=== PATIENT | female | born 1965 | race American Indian/Alaskan Native ===

== ENCOUNTER 2017-01-14 01:40 | Inpatient (IN) | payer MEDICARE ==
[2017-01-14 02:27] LABS: Basophils % (Auto) 0.9 % (0.0-1.8); Eosinophils % (Auto) 2.3 % (0.0-4.3); Hemoglobin 12.4 gm/dl (10.1-14.3); Mean Corpuscular HGB Conc 33 % (30-34); Mean Corpuscular Hemoglobin 28 pg (28-32); Mean Corpuscular Volume 85 fl (79-97); Platelet Count 189 K/mm3 (140-440); Red Blood Count 4.48 M/mm3 (3.65-5.03); White Blood Count 4.7 K/mm3 (4.5-11.0)
[2017-01-14 02:45] LABS: INR 1.13 (0.87-1.13)
[2017-01-14 02:46] LABS: Partial Thromboplastin Time 29.3 Sec. (24.2-36.6)
[2017-01-14 02:50] LABS: Alanine Aminotransferase 19 units/L (7-56); Albumin 4.3 g/dL (3.9-5); Albumin/Globulin Ratio 1.4 %; Alkaline Phosphatase 97 units/L (35-129); Anion Gap 18 mmol/L; BUN/Creatinine Ratio 18.57; Blood Urea Nitrogen 13 mg/dL (7-17); Carbon Dioxide 23 mmol/L (22-30); Chloride 107.6 mmol/L (98-107); Glucose 111 mg/dL (65-100); Potassium 3.8 mmol/L (3.6-5.0); Sodium 145 mmol/L (137-145); Total Protein 7.4 g/dL (6.3-8.2)
[2017-01-14] MEDS ORDERED: ZOFRAN ONE (05:00)
[2017-01-14] MEDS ORDERED: MORPHINE ONE (05:00)
[2017-01-14] MEDS ORDERED: MORPHINE IV ONE (05:01)
[2017-01-14] MEDS ORDERED: ZOFRAN IV ONE (05:01)
[2017-01-14] MEDS ORDERED: NITROSTAT SL ONE (07:37)
[2017-01-14] MEDS ORDERED: TYLENOL PO ONE (07:37)
--- NOTE | 2017-01-14 09:06 | XRay Report ---
Single view chest: Compared to 08/20/15. History: Chest pain. Findings: Normal cardiomediastinal silhouette. Trachea is midline. No consolidation, pneumothorax or pleural effusion. Impression: No acute cardiopulmonary findings.
[2017-01-14] MEDS ORDERED: BABY ASPIRIN PO ONE (09:43)
--- NOTE | 2017-01-14 09:43 | Emergency Department Report ---
HPI - General Chief Complaint: Chest Pain Time Seen by Provider: 01/14/17 06:47 - HPI HPI: The patient is a 51-year-old female who presents for evaluation of chest pain. The patient has a history of coronary artery disease and stent placement 3 years ago. The patient complains of midsternal chest pain onset 3 hours prior to arrival, constant since onset, pressure-like in quality, 8/10 in severity, and radiating to her back. The patient denies fever, cough, syncope, hemoptysis , unilateral leg swelling, recent immobilization, history of DVT or PE, recent cancer, recent surgery. She says that she has not received a stress test within the past year. ED Past Medical Hx - Past Medical History Previous Medical History?: Yes Hx Hypertension: Yes Hx Heart Attack/AMI: Yes Hx Congestive Heart Failure: No Hx Diabetes: No Hx Deep Vein Thrombosis: No Hx of Cancer: Yes (Colon) Hx Headaches / Migraines: Yes Hx Asthma: Yes Hx COPD: No Hx HIV: No Additional medical history: lupus - Surgical History Past Surgical History?: Yes Hx Coronary Stent: Yes Hx Pacemaker: No Hx Internal Defibrillator: No Additional Surgical History: herniated discs - Social History Smoking Status: Never Smoker Substance Use Type: None - Medications Home Medications: Home Medications Medication Instructions Recorded Confirmed Last Taken Type ALBUTEROL Inhaler [ProAir HFA 2 puff INHALATION Q4H PRN 12/12/13 01/14/17 History Inhaler] FLUoxetine [PROzac] 40 mg PO DAILY 12/12/13 01/14/17 08/19/15 History Hydroxychloroquine [Plaquenil] 200 mg PO BID 12/12/13 01/14/17 08/19/15 History traZODone [Desyrel] 150 mg PO QHS 12/12/13 01/14/17 08/19/15 History Aspirin [Aspirin TAB] 325 mg PO QDAY #30 tablet 12/15/13 01/14/17 08/19/15 Rx Clopidogrel [Plavix] 75 mg PO QDAY #30 tablet 12/15/13 01/14/17 08/19/15 Rx Nitroglycerin [Nitrostat] 0.4 mg SL Q5M PRN #60 tab 12/15/13 01/14/17 08/19/15 Rx Atorvastatin [Lipitor] 40 mg PO QHS 08/20/15 01/14/17 08/19/15 History Cholecalciferol (Vitamin D3) 2,000 unit PO DAILY 08/20/15 01/14/17 08/19/15 History [Vitamin D3] HYDROcodone/APAP 10-325 [[place] 1 each PO Q4HR PRN 08/20/15 01/14/17 08/19/15 History 10-325 mg TAB] Hydrocortisone Acetate 25 mg RC BID 08/20/15 01/14/17 08/19/15 History [Hemmorex-Hc] Meloxicam [Mobic] 7.5 mg PO QDAY 08/20/15 01/14/17 08/19/15 History Pantoprazole [Protonix TAB] 40 mg PO BID #30 08/20/15 01/14/17 08/19/15 Rx Propranolol HCl 20 mg PO BID 08/20/15 01/14/17 08/19/15 History Sucralfate 1 gm PO QID 08/20/15 01/14/17 08/19/15 History ED Review of Systems ROS: Stated complaint: CHEST PAIN Other details as noted in HPI Constitutional: denies: fever ENT: denies: throat or neck pain Respiratory: denies: cough, shortness of breath Cardiovascular: reports chest pain Endocrine: denies unexplained weight loss or gain Gastrointestinal: denies: abdominal pain, nausea Genitourinary: denies: dysuria Musculoskeletal: denies: leg swelling Skin: denies: rash Neurological: denies: headache Hematological/Lymphatic: denies: easy bleeding or easy bruising Psych: denies sadness or hopelessness Physical Exam - Physical Exam Vital Signs: Vital Signs 01/14/17 01/14/17 01/14/17 01:49 02:36 03:00 Temperature 98.1 F Pulse Rate 69 62 60 Respiratory 18 19 17 Rate Blood Pressure 142/79 135/62 O2 Sat by Pulse 98 100 98 Oximetry 01/14/17 01/14/17 01/14/17 03:30 04:01 04:30 Temperature Pulse Rate 60 58 L 71 Respiratory 15 16 17 Rate Blood Pressure 139/66 132/63 118/71 O2 Sat by Pulse 100 98 99 Oximetry 01/14/17 01/14/17 01/14/17 05:01 05:30 06:01 Temperature Pulse Rate 78 71 62 Respiratory 16 12 14 Rate Blood Pressure 127/57 143/119 142/71 O2 Sat by Pulse 98 96 99 Oximetry 01/14/17 01/14/17 01/14/17 06:30 07:00 07:20 Temperature Pulse Rate 61 62 64 Respiratory 12 17 Rate Blood Pressure 142/71 129/63 O2 Sat by Pulse 99 97 Oximetry 01/14/17 01/14/17 01/14/17 07:25 07:30 08:00 Temperature 98.0 F Pulse Rate 67 70 58 L Respiratory 16 13 Rate Blood Pressure 122/71 122/71 O2 Sat by Pulse 98 98 Oximetry 01/14/17 01/14/17 01/14/17 08:31 09:01 09:14 Temperature Pulse Rate 69 69 67 Respiratory 15 14 Rate Blood Pressure 153/75 147/74 147/84 O2 Sat by Pulse 98 97 Oximetry Physical Exam: Constitutional: denies: fever ENT: denies: throat or neck pain Respiratory: denies: cough, shortness of breath Cardiovascular: denies: chest pain Endocrine: denies unexplained weight loss or gain Gastrointestinal: denies: abdominal pain, nausea Genitourinary: denies: dysuria Musculoskeletal: denies: leg swelling Skin: denies: rash Neurological: denies: headache Hematological/Lymphatic: denies: easy bleeding or easy bruising Psych: denies sadness or hopelessness ED Course Vital Signs 01/14/17 01/14/17 01/14/17 01:49 02:36 03:00 Temperature 98.1 F Pulse Rate 69 62 60 Respiratory 18 19 17 Rate Blood Pressure 142/79 135/62 O2 Sat by Pulse 98 100 98 Oximetry 01/14/17 01/14/17 01/14/17 03:30 04:01 04:30 Temperature Pulse Rate 60 58 L 71 Respiratory 15 16 17 Rate Blood Pressure 139/66 132/63 118/71 O2 Sat by Pulse 100 98 99 Oximetry 01/14/17 01/14/17 01/14/17 05:01 05:30 06:01 Temperature Pulse Rate 78 71 62 Respiratory 16 12 14 Rate Blood Pressure 127/57 143/119 142/71 O2 Sat by Pulse 98 96 99 Oximetry 01/14/17 01/14/17 01/14/17 06:30 07:00 07:20 Temperature Pulse Rate 61 62 64 Respiratory 12 17 Rate Blood Pressure 142/71 129/63 O2 Sat by Pulse 99 97 Oximetry 01/14/17 01/14/17 01/14/17 07:25 07:30 08:00 Temperature 98.0 F Pulse Rate 67 70 58 L Respiratory 16 13 Rate Blood Pressure 122/71 122/71 O2 Sat by Pulse 98 98 Oximetry 01/14/17 01/14/17 01/14/17 08:31 09:01 09:14 Temperature Pulse Rate 69 69 67 Respiratory 15 14 Rate Blood Pressure 153/75 147/74 147/84 O2 Sat by Pulse 98 97 Oximetry ED Medical Decision Making - Lab Data Result diagrams: 01/14/17 02:15 01/14/17 02:15 - Medical Decision Making The patient was seen and examined by myself. The patient is placed on a hand polisher and continuous pulse ox. On initial evaluation, the patient was found to be in no distress. EKG was negative for findings suggestive of acute cardiac infarct. The patient is given an aspirin, a tab of Tylenol, and a nitroglycerin tablet. The patient was given morphine by the previous shift physician. Labs and imaging are obtained. Chest x-ray is negative for pneumothorax, focal consolidation, pulmonary vascular congestion, pleural effusion, or other obvious acute cardiopulmonary disease process. Lab results were non-revealing including negative troponin, WBC, hemoglobin, hematocrit, electrolytes, renal function. The patient was reevaluated and reported that their symptoms were improved but persisted. As the patient has chest pain and risk factors for development of acute coronary event, and has not received a stress test within the past year, the patient will be admitted for close cardiopulmonary monitoring, serial troponins, and evaluation by cardiology. The on-call [facility] physician Dr. Vazquez was contacted. She approved the patient's admission to our facility. The physician on-call was contacted. They presented to the emergency department and evaluated the patient. They agreed to admit the patient. The ED admit order was placed. The patient was admitted in guarded condition. Critical care attestation.: If time is entered above; I have spent that time in minutes in the direct care of this critically ill patient, excluding procedure time. ED Disposition Clinical Impression: Acute chest pain, Obesity (BMI 30.0-34.9) Disposition: OP ADMIT IP TO THIS HOSP Is pt being admited?: Yes Does the pt Need Aspirin: Yes Condition: Stable Time of Disposition: 07:41
--- NOTE | 2017-01-14 13:52 | History and Physical Report ---
History of Present Illness Date of examination: 01/14/17 Date of admission: 01/14/17 10:53 Chief complaint: chest pain History of present illness: The patient is a 51-year-old female with a history of coronary artery disease and stent placement 3 years ago who presents to the ER for the evaluation of chest pain. The patient complains of midsternal chest pain onset 3 hours prior to arrival to ER, constant since onset, pressure-like in quality, 8/10 in severity, and radiating to her back. The patient denies fever, cough, syncope, hemoptysis, unilateral leg swelling, recent immobilization. She had similar presentation last year and evaluated by a stress stress which was normal and 2- D echocardiogram showed preserved EF. Patient now being followed by [facility] as outpatient. She states that she recently started to going to gym for weight reduction, but did not experience any chest pain while she was exercising. Her chest pain actually developed since last Monday and she preferred not to go to gym. But the chest pain continued to recur and was lasting even longer, so she decided to come to ER for further evaluation. ER she has so far negative troponins, EKG without any ST changes, chest x-ray did not show any acute infiltrates. She'll be admitted for further evaluation and management. Past medical History: h/o CAD, HTN, discoid lupus, bronchial asthma, colon cancer status post surgery and chemotherapy. IBS, migraine, disc disease Past surgical History: s/p PCI to LAD with FRAN on 2013, hysterectomy, Other ( surgery for colon cancer, placement and removal of port's. Social History: Lives with family, denies any smoking, drinking and elicit drug abuse. Family History: Significant for CAD (father), hypertension Review of System: Constitutional: no fever, no chills, no weight loss Ears, eyes, nose, mouth and throat: no nasal congestion, no nasal discharge, no sinus pressure, no vision change, no red eye. Neck: No neck pain or rigidity. Cardiovascular: + chest pain, no orthopnea, no palpitations, no leg swelling Respiratory: No shortness of breath, no cough, no congestion, no wheezing Gastrointestinal: no abdominal pain, no nausea, no vomiting Genitourinary : no dysuria, no hematuria Musculoskeletal: no joint swelling or muscle ache Integumentary: no rash, no pruritis Neurological: no parathesias, no numbness, no tingling Endocrine: no cold or heat intolerance, no polyuria or polydipsia Hematologic/Lymphatic: no easy bruising, no easy bleeding, no gland swelling Allergic/Immunologic: no urticaria, no angioedema. Medications and Allergies Allergies Allergy/AdvReac Type Severity Reaction Status Date / Time Penicillins AdvReac Unknown Verified 12/12/13 05:40 Home Medications Medication Instructions Recorded Confirmed Last Taken Type ALBUTEROL Inhaler [ProAir HFA 2 puff INHALATION Q4H PRN 12/12/13 01/14/17 History Inhaler] FLUoxetine [PROzac] 40 mg PO DAILY 12/12/13 01/14/17 08/19/15 History Hydroxychloroquine [Plaquenil] 200 mg PO BID 12/12/13 01/14/17 08/19/15 History traZODone [Desyrel] 150 mg PO QHS 12/12/13 01/14/17 08/19/15 History Aspirin [Aspirin TAB] 325 mg PO QDAY #30 tablet 12/15/13 01/14/17 08/19/15 Rx Clopidogrel [Plavix] 75 mg PO QDAY #30 tablet 12/15/13 01/14/17 08/19/15 Rx Nitroglycerin [Nitrostat] 0.4 mg SL Q5M PRN #60 tab 12/15/13 01/14/17 08/19/15 Rx Atorvastatin [Lipitor] 40 mg PO QHS 08/20/15 01/14/17 08/19/15 History Cholecalciferol (Vitamin D3) 2,000 unit PO DAILY 08/20/15 01/14/17 08/19/15 History [Vitamin D3] HYDROcodone/APAP 10-325 [[place] 1 each PO Q4HR PRN 08/20/15 01/14/17 08/19/15 History 10-325 mg TAB] Hydrocortisone Acetate 25 mg RC BID 08/20/15 01/14/17 08/19/15 History [Hemmorex-Hc] Meloxicam [Mobic] 7.5 mg PO QDAY 08/20/15 01/14/17 08/19/15 History Pantoprazole [Protonix TAB] 40 mg PO BID #30 08/20/15 01/14/17 08/19/15 Rx Propranolol HCl 20 mg PO BID 08/20/15 01/14/17 08/19/15 History Sucralfate 1 gm PO QID 08/20/15 01/14/17 08/19/15 History Exam - Physical Exam Narrative exam: GENERAL: This is well-developed well-nourished lying on bed appeared to be in no discomfort. HEENT: Normocephalic. Atraumatic. Extraocular motions are intact. No conjunctival congestion or icterus. Patient has moist mucous membranes. External auditory canal and nares patent bilaterally. NECK: Supple. Trachea midline. No JVD, thyromagaly or lymphadenopathy. CHEST/LUNGS: Clear to auscultated bilaterally. There is no respiratory distress noted, breathing nonlabored. No wheezes crackles or rhonchi. HEART/CARDIOVASCULAR: Regular in rate and rhythm. PMI at the apex. There is no gallop rub or murmur. ABDOMEN: Abdomen is soft, nontender. Patient has normal bowel sounds. There is no abdominal distention. No organomagaly or rigidity. SKIN: There is no rash, no erythrema. There is no diaphoresis. Warm and dry. NEUROLOGY: The patient is awake, alert, and oriented. The patient is cooperative. The patient has normal speech. No focal motor deficit. MUSCULOSKELETAL: No joint effusion or tenderness. Muscle strength equal bilaterally. No muscle wasting. EXTRIMITY: No edema, cyanosis or clubbing. PSYCH: No depression or anxiety noted. Cooperative. - Constitutional Vitals: Temp Pulse Resp BP Pulse Ox 98.0 F 61 15 143/53 93 01/14/17 07:25 01/14/17 12:31 01/14/17 12:31 01/14/17 12:31 01/14/17 12:31 Results - Labs CBC & Chem 7: 01/14/17 02:15 01/14/17 02:15 - Imaging and Cardiology Chest x-ray: report reviewed (no cardiopulmonary finding) Assessment and Plan Acute chest pain - - will admit to telemetry bed - monitor with serial CE and EKG - will place on Aspirin, statin - as needed SL NTG and iv morphin for pain - Monitor BP, continue betablocker - order 2D echo and stress test in the am - Patient had a negative stress test on 2015 and 2d echocardiogram that time showed preserved ejection fraction - cardiac diet now, NPO after midnight - Consult cardiology - provide DVT Px with lovenox CAD, - s/p PCI to LAD with FRAN on 2013 - Resume home meds HTN, - Continue home meds, monitor BP - Adjust BP meds as needed discoid lupus, - Continue Plaquenil and hydrocortisone cream bronchial asthma, - Nebulizer breathing treatment as needed colon cancer status post surgery and chemotherapy. Other chronic issues --IBS, migraine, disc disease : Continue supportive care, not on any acute exacerbation DVT prophylaxis - On Lovenox
[2017-01-14] MEDS ORDERED: NITROSTAT SL PRN (15:19)
[2017-01-14] MEDS ORDERED: PROAIR IH PRN (15:19)
[2017-01-14] MEDS ORDERED: PROVENTIL IH PRN (15:25)
[2017-01-14] MEDS: PLAVIX PO SCH (16:01)
[2017-01-14] MEDS: NORCO 10/325 PO PRN (16:01)
[2017-01-14] MEDS: PROzac PO SCH (16:02)
[2017-01-14] MEDS: CARAFATE PO SCH ×2 (18:10→22:37)
[2017-01-14] MEDS ORDERED: DESYREL PO SCH (22:00)
[2017-01-14] MEDS ORDERED: PROPRANOLOL HCL 20 MG PO SCH (22:00)
[2017-01-14] MEDS: PROTONIX PO SCH (22:38)
[2017-01-14] MEDS: ANUCORT-HC PR SCH (22:39)
[2017-01-14] MEDS: PLAQUENIL PO SCH (22:39)
[2017-01-14] MEDS: INDERAL PO SCH (22:42)
[2017-01-15] MEDS ORDERED: LEXISCAN IV ONE (08:08)
[2017-01-15] MEDS ORDERED: ASPIRIN PO SCH (10:00)
[2017-01-15] MEDS ORDERED: NON-FORMULARY (Cholecalciferol (Vitamin D3) [Vitamin D3] 2,000 UNIT) PO SCH (10:00)
[2017-01-15] MEDS ORDERED: VITAMIN D3 PO SCH (10:00)
--- NOTE | 2017-01-15 11:12 | Consultation ---
History of Present Illness Consult date: 01/15/17 Consult reason: chest pain History of present illness: This is a very pleasant 51aa female w cp yesterday - mostly atypical, non- exertional, sometimes worse w eating. Seen in stress lab and currently cp-free Medications and Allergies Allergies Allergy/AdvReac Type Severity Reaction Status Date / Time Penicillins AdvReac Unknown Verified 12/12/13 05:40 Home Medications Medication Instructions Recorded Confirmed Last Taken Type ALBUTEROL Inhaler [ProAir HFA 2 puff INHALATION Q4H PRN 12/12/13 01/14/17 History Inhaler] FLUoxetine [PROzac] 40 mg PO DAILY 12/12/13 01/14/17 08/19/15 History Hydroxychloroquine [Plaquenil] 200 mg PO BID 12/12/13 01/14/17 08/19/15 History traZODone [Desyrel] 150 mg PO QHS 12/12/13 01/14/17 08/19/15 History Aspirin [Aspirin TAB] 325 mg PO QDAY #30 tablet 12/15/13 01/14/17 08/19/15 Rx Clopidogrel [Plavix] 75 mg PO QDAY #30 tablet 12/15/13 01/14/17 08/19/15 Rx Nitroglycerin [Nitrostat] 0.4 mg SL Q5M PRN #60 tab 12/15/13 01/14/17 08/19/15 Rx Atorvastatin [Lipitor] 40 mg PO QHS 08/20/15 01/14/17 08/19/15 History Cholecalciferol (Vitamin D3) 2,000 unit PO DAILY 08/20/15 01/14/17 08/19/15 History [Vitamin D3] HYDROcodone/APAP 10-325 [[place] 1 each PO Q4HR PRN 08/20/15 01/14/17 08/19/15 History 10-325 mg TAB] Hydrocortisone Acetate 25 mg RC BID 08/20/15 01/14/17 08/19/15 History [Hemmorex-Hc] Meloxicam [Mobic] 7.5 mg PO QDAY 08/20/15 01/14/17 08/19/15 History Pantoprazole [Protonix TAB] 40 mg PO BID #30 08/20/15 01/14/17 08/19/15 Rx Propranolol HCl 20 mg PO BID 08/20/15 01/14/17 08/19/15 History Sucralfate 1 gm PO QID 08/20/15 01/14/17 08/19/15 History Active Meds: Active Medications Acetaminophen/Hydrocodone Bitart ([place] 10/325) 1 each PO Q4H PRN PRN Reason: Pain, MODERATE Last Admin: 01/14/17 16:01 Dose: 1 each Albuterol (Proventil) 2.5 mg IH Q4HRT PRN PRN Reason: Shortness Of Breath Aspirin (Aspirin) 325 mg PO QDAY [facility] Atorvastatin Calcium (Lipitor) 40 mg PO QHS [facility] Last Admin: 01/14/17 22:37 Dose: 40 mg Cholecalciferol (Vitamin D3) 2,000 unit PO QDAY [facility] Clopidogrel Bisulfate (Plavix) 75 mg PO QDAY [facility] Last Admin: 01/14/17 16:01 Dose: 75 mg Fluoxetine HCl (Prozac) 40 mg PO DAILY [facility] Last Admin: 01/14/17 16:02 Dose: 40 mg Hydrocortisone Acetate (Anucort-Hc) 25 mg OR BID [facility] Last Admin: 01/14/17 22:39 Dose: 25 mg Hydroxychloroquine Sulfate (Plaquenil) 200 mg PO BID [facility] Last Admin: 01/14/17 22:39 Dose: 200 mg Nitroglycerin (Nitrostat) 0.4 mg SL Q5M PRN PRN Reason: Chest Pain Pantoprazole Sodium (Protonix) 40 mg PO BID [facility] Last Admin: 01/14/17 22:38 Dose: 40 mg Propranolol HCl (Inderal) 20 mg PO BID [facility] Last Admin: 01/14/17 22:42 Dose: 20 mg Sucralfate (Carafate) 1 gm PO QID [facility] Last Admin: 01/14/17 22:37 Dose: 1 gm Trazodone HCl (Desyrel) 150 mg PO QHS [facility] Last Admin: 01/14/17 22:37 Dose: 150 mg Physical Examination Vital Signs Temp Pulse Resp BP Pulse Ox 98.1 F 69 18 142/79 98 01/14/17 01:49 01/14/17 01:49 01/14/17 01:49 01/14/17 01:49 01/14/17 01:49 Results 01/14/17 02:15 01/14/17 02:15 Assessment and Plan This is a 51yo AAF: 1. CP with typical and atypical features (h/o pci mid-lad 2013) * now cp-free * ce - x 3 * ecg non-acute * stress mpi this am wnl 2. htn 3. lupus 4. h/o colon ca 5. ibs 6. h/o migraines stable cv status cont asa/plavix/statin therapy may dc home to f/u with [facility] if she remains cp-free. thanks
[2017-01-15] MEDS: PROTONIX PO SCH (11:18)
[2017-01-15] MEDS: PROzac PO SCH (11:18)
[2017-01-15] MEDS: PLAVIX PO SCH (11:19)
[2017-01-15] MEDS: INDERAL PO SCH (11:19)
[2017-01-15 11:20] VITALS: BP 123/60
[2017-01-15] MEDS: PLAQUENIL PO SCH (11:20)
[2017-01-15] MEDS: CARAFATE PO SCH (11:20)
[2017-01-15] MEDS: ANUCORT-HC PR SCH (11:21)
[2017-01-15] MEDS: NORCO 10/325 PO PRN (11:30)
--- NOTE | 2017-01-15 11:58 | Discharge Summary ---
Providers - Providers Date of Admission: 01/14/17 10:53 Date of discharge: 01/15/17 Attending physician: RAHEEL ROSENBAUM 01/14/17 15:27 Consult to Physician [CONS] Routine Consulting Provider: TIMUR THEODORE Reason For Exam: chest pain Place consult to:: cardiology Notified:: yes Comment:: nivia blanco Primary care physician: WRITER PRODUCER Hospitalization Condition: Stable Hospital course: Discharge diagnosis: Acute chest pain, likely from GERD - - will admit to telemetry bed - monitor with serial CE and EKG - will place on Aspirin, statin - as needed SL NTG and iv morphin for pain - Monitor BP, continue betablocker - order 2D echo and stress test in the am - Patient had a negative stress test on 2015 and 2d echocardiogram that time showed preserved ejection fraction - cardiac diet now, NPO after midnight - Consult cardiology - provide DVT Px with lovenox CAD, - s/p PCI to LAD with FRNA on 2013 - Resume home meds HTN, - Continue home meds, monitor BP - Adjust BP meds as needed discoid lupus, - Continue Plaquenil and hydrocortisone cream bronchial asthma, - Nebulizer breathing treatment as needed colon cancer status post surgery and chemotherapy. Other chronic issues --IBS, migraine, disc disease : Continue supportive care, not on any acute exacerbation Disposition: DC-01 TO HOME OR SELFCARE Time spent for discharge: 32 minutes Core Measure Documentation - Palliative Care Palliative Care/ Comfort Measures: Not Applicable - Core Measures Any of the following diagnoses?: history only Exam - Physical Exam Narrative exam: GENERAL: This is well-developed well-nourished lying on bed appeared to be in no discomfort. HEENT: Normocephalic. Atraumatic. Extraocular motions are intact. No conjunctival congestion or icterus. Patient has moist mucous membranes. External auditory canal and nares patent bilaterally. NECK: Supple. Trachea midline. No JVD, thyromagaly or lymphadenopathy. CHEST/LUNGS: Clear to auscultated bilaterally. There is no respiratory distress noted, breathing nonlabored. No wheezes crackles or rhonchi. HEART/CARDIOVASCULAR: Regular in rate and rhythm. PMI at the apex. There is no gallop rub or murmur. ABDOMEN: Abdomen is soft, nontender. Patient has normal bowel sounds. There is no abdominal distention. No organomagaly or rigidity. SKIN: There is no rash, no erythrema. There is no diaphoresis. Warm and dry. NEUROLOGY: The patient is awake, alert, and oriented. The patient is cooperative. The patient has normal speech. No focal motor deficit. MUSCULOSKELETAL: No joint effusion or tenderness. Muscle strength equal bilaterally. No muscle wasting. EXTRIMITY: No edema, cyanosis or clubbing. PSYCH: No depression or anxiety noted. Cooperative. - Constitutional Vitals: Temp Pulse Resp BP Pulse Ox 98.5 F 70 20 123/60 98 01/15/17 08:31 01/15/17 10:00 01/15/17 10:00 01/15/17 09:31 01/15/17 08:31 Plan Activity: advance as tolerated Weight Bearing Status: Weight Bear as Tolerated Diet: low fat, low salt Follow up with: PRIMARY CAREMD [Primary Care Provider] - 3-5 Days
--- NOTE | 2017-01-15 13:35 | Treadmill Report ---
NUCLEAR STRESS TEST REFERRING PHYSICIAN: Allan Garnica M.D. PROTOCOL: The patient was brought to the stress lab in a postabsorptive state, given 10 mCi of technetium 99m at rest. The patient underwent rest imaging. The patient underwent Lexiscan stress test. At peak stress, the patient was given 26 mCi of technetium 99m. Shortly thereafter, the patient underwent stress imaging. Raw imaging reveals mild GI artifact. No significant motion artifact. SPECT imaging examined carefully in the horizontal long axis, vertical long axis, and short axis views. There is normal homogenous uptake of radioisotope in all reported segments. There is no evidence of significant fixed or reversible perfusion defects suggestive of prior infarction or ischemia. Gated wall motion reveals normal systolic thickening. Calculated ejection fraction of 62%. No TID. CONCLUSIONS: 1. Normal myocardial perfusion scan without evidence of active ischemia or prior infarction. 2. Normal left ventricular systolic performance without evidence of transient ischemic dilatation or stress-induced segmental wall motion abnormalities. JOB# [id number] TYSHAWN/JANICE
== END 2017-01-15 14:05 | disposition home or self-care (01) | DRG 392 ==
LOC: ED 01:40 → 4A 10:53
PROVIDERS: ADMIT Hospitalist; ATTEND Hospitalist
DX: K21.9 Gastro-esophageal reflux disease without esophagitis (principal); Z88.0 Allergy status to penicillin; I25.10 Atherosclerotic heart disease of native coronary artery without angina pectoris; I10 Essential (primary) hypertension; I25.2 Old myocardial infarction; Z85.038 Personal history of other malignant neoplasm of large intestine; J45.909 Unspecified asthma, uncomplicated; L93.0 Discoid lupus erythematosus; Z79.82 Long term (current) use of aspirin; E66.9 Obesity, unspecified; Z68.33 Body mass index [BMI] 33.0-33.9, adult; Z90.710 Acquired absence of both cervix and uterus; Z82.49 Family history of ischemic heart disease and other diseases of the circulatory system; K58.9 Irritable bowel syndrome, unspecified
CPT/HCPCS: 36415; 71010; 78452; 80053; 84484; 85025; 85610; 85730; 93005; 93010; 93017; 93306; 96374; 96375; A9270-GY; A9502; J2270; J2405; J2785